=== PATIENT | female | born 1995 | race Caucasian/White ===

== ENCOUNTER → 2022-07-04 | Outpatient (CLI) | payer BC ==
--- NOTE | 2022-07-04 17:32 | Diagnostic Imaging Report ---
INDICATION: Supervision of normal . Anatomy scan. TECHNIQUE: Multiple real-time grayscale images were obtained over the gravid uterus. COMPARISON: None FINDINGS: A single live intrauterine gestation is visualized in cephalic presentation. heart tones measure 142 bpm. The placenta is posterior and not low-lying. The BRIGIDA measures 10 cm. The cervix is closed and measures 4.8 cm in length. The kidneys, bladder, stomach, ventricles and brain, four-chamber heart, three-vessel cord, spine, and cord insertion are visualized and have a normal appearance. Views of the adnexa are unremarkable without evidence of mass or free fluid. Biometrical measurements are as follows: Biparietal 4.77 cm, age 20 weeks 3 days. Head circumference 17.43 cm, age 20 weeks 0 days. Abdominal circumference 13.93 cm, age 19 weeks 3 days. Femur length 3.18 cm, age 20 weeks 0 days. Sonographic estimate age: 20 weeks 0 days. Sonographic estimated date of delivery: 11/21/2022. Estimated Weight: 305 gm (+/- 45 gm). LMP percentile: 34%. heart rate: 142 beats per minute. number: 1 of 1. IMPRESSION: 1. Single live intrauterine gestation measuring 20 weeks 0 days with an estimated due date of 11/21/2022. These are within range of the clinical dates. 2. Unremarkable anatomy survey. No abnormalities are seen. Dictated by: Dictated on workstation # [id number]
== END ==
LOC: RAD 10:00
PROVIDERS: ATTEND Obstetrics & Gynecology
DX: Z13.6 Encounter for screening for cardiovascular disorders (principal); Z3A.20 20 weeks gestation of pregnancy
CPT/HCPCS: 76805

== ENCOUNTER 2022-11-18 19:06 | Inpatient (IN) | payer BC ==
[~2022-11-18] VITALS: Ht 173.5 cm; Wt 79.2 kg
[2022-11-18 19:48] VITALS: BP 131/88
[2022-11-18] MEDS ORDERED: TERBUTALINE INJ 1 MG/ML (BRETHINE) AMP SC PRN (20:00)
[2022-11-18] MEDS ORDERED: NS IV 500 ML 500 ML IV ONE (20:00)
[2022-11-18] MEDS ORDERED: NS IV 500 ML 500 ML ONE (20:07)
[2022-11-18 20:10] VITALS: BP 137/97
[2022-11-18 20:12] LABS: BASOPHILS % (AUTO) 0 % (0-10); EOSINOPHILS % (AUTO) 0 % (0-10); HEMATOCRIT 36 % (35-52); HEMOGLOBIN 12.7 g/dL (11.5-16.0); LYMPHOCYTES # (AUTO) 1.8 10^3/uL (1.0-4.0); LYMPHOCYTES % (AUTO) 17 % (12-44); MEAN CORPUSCULAR HEMOGLOBIN 32 pg (25-34); MEAN CORPUSCULAR HGB CONC 36 g/dL (32-36); MEAN CORPUSCULAR VOLUME 90 fL (80-99); MEAN PLATELET VOLUME 10.6 fL (9.0-12.2); MONOCYTES # (AUTO) 0.5 10^3/uL (0.0-1.0); MONOCYTES % (AUTO) 4 % (0-12); NEUTROPHILS # (AUTO) 8.7 10^3/uL (1.8-7.8); NEUTROPHILS % (AUTO) 78 % (42-75); PLATELET COUNT 254 10^3/uL (130-400); WHITE BLOOD COUNT 11.2 10^3/uL (4.3-11.0)
[2022-11-18 20:25] VITALS: BP 136/91
[2022-11-18] MEDS ORDERED: D5 LR IV SOLUTION 1,000 ML IV ONE (20:26)
[2022-11-18] MEDS: D5 LR IV SOLUTION 1,000 ML IV SCH (20:28)
[2022-11-18] MEDS: CATHETER FLUSH 10 ML SYR IV SCH (21:20)
[2022-11-18 21:52] LABS: BILIRUBIN,URINE NEGATIVE (NEGATIVE); CLARITY,URINE CLEAR; COLOR,URINE YELLOW; GLUCOSE, URINE (UA) NEGATIVE (NEGATIVE); KETONES,URINE NEGATIVE (NEGATIVE); LEUKOCYTE ESTERASE ,URINE NEGATIVE (NEGATIVE); NITRITE,URINE NEGATIVE (NEGATIVE); PROTEIN,URINE TRACE (NEGATIVE)
[2022-11-18 22:02] LABS: BACTERIA,URINE TRACE /HPF; SQUAMOUS EPITHELIAL CELL,UR RARE /HPF
[2022-11-19] VITALS (63 sets, daily range): BP systolic 111–186; BP diastolic 60–102
[2022-11-19] MEDS: D5 LR IV SOLUTION 1,000 ML IV SCH ×2 (04:21→12:17)
[2022-11-19] MEDS: CATHETER FLUSH 10 ML SYR IV SCH (05:42)
[2022-11-19] MEDS ORDERED: HYDROmorphone 2 MG/ML VIAL (DILAUDID) ONE (05:44)
[2022-11-19] MEDS ORDERED: HYDROmorphone 2 MG/ML VIAL (DILAUDID) IV ONE (05:45)
[2022-11-19] MEDS ORDERED: LACTATED RINGERS 1,000 ML IV ONE ×2 (06:15→07:15)
[2022-11-19] MEDS ORDERED: fentaNYL 2 mcg/ml BUPIVA 0.125 100 ML ONE (06:37)
[2022-11-19] MEDS ORDERED: fentaNYL INJ 100 MCG/2 ML AMP ONE (07:03)
[2022-11-19] MEDS ORDERED: BUPIVACAINE 0.25% 10 ML (SENSORCAINE) VIAL ONE (07:03)
[2022-11-19] MEDS ORDERED: CATHETER FLUSH 10 ML SYR IV PRN (07:15)
[2022-11-19] MEDS ORDERED: diphenhydrAMINE 50 MG/ML INJ (BENADRYL) IV PRN (07:15)
[2022-11-19] MEDS ORDERED: NALOXONE 0.4 MG/ML 1 ML (NARCAN) VIAL IV PRN ×2 (07:15→17:00)
[2022-11-19] MEDS ORDERED: ONDANSETRON 4 MG/2 ML (SDV) Z0FRAN IV PRN (07:15)
[2022-11-19] MEDS: fentaNYL 2 mcg/ml BUPIVA 0.125 100 ML IV SCH ×2 (07:27→14:35)
--- NOTE | 2022-11-19 08:37 | History & Physical-OB/GYN ---
History of Present Illness History of Present Illness Reason for visit/HPI Patient is a 27 y/o F at 39 weeks here today with her for induction of labor due to gestational hypertension. She reports some contractions over night. She has received her epidural now and contractions have subsided. She states she does not feel any pressure yet. Denies any other complaints at this time. Blood Type: O- Rubella immune RPR NR HBSag - HIV - GBS - Date of Admission Nov 18, 2022 at 19:06 Date Seen by a Provider: Nov 19, 2022 Time Seen by a Provider: 08:11 I consulted on this patient on 11/19/22 08:33 Attending Physician [place],Local Physician Admitting Physician Admitting Physician: Merritt Marcial DO Attending Physician: Merritt Marcial DO Consult Allergies and Home Medications Allergies Coded Allergies: No Known Drug Allergies (Unverified , 11/18/22) Patient Home Medication List Home Medication List Reviewed: Yes Benzocaine/Menthol (Dermoplast Pain Relieving [place]) 20 %-0.5 % Aerosol, 56 EA TP UD PRN for PAIN- SEE INSTRUCTIONS Prescribed by: MERRITT MARCIAL on 11/19/221703 Dibucaine (Dibucaine) 1 % Oint, 1 GM TOP UD PRN for PAIN- SEE INSTRUCTIONS Prescribed by: MERRITT MARCIAL on 11/19/221703 Docusate Sodium (Docusate Sodium) 100 Mg Capsule, 100 MG PO BID PRN for CONS TIPATION-1ST LINE Prescribed by: MERRITT MARCIAL on 11/19/221703 Hydrocodone/Acetaminophen (Hydrocodone-Acetamin 5-325 mg) 5 Mg-325 Mg Tablet, 1 EA PO Q4H PRN for PAIN-MODERATE (5-7) Prescribed by: MERRITT MARCIAL on 11/19/221703 Ibuprofen (Ibu) 600 Mg Tablet, 600 MG PO Q6H Prescribed by: MERRITT MARCIAL on 11/19/221703 Past Sfkfpbe-Wfgnyy-Janefd Hx Patient Social History Smoking Status: Never a Smoker Have you traveled recently?: No Alcohol Use?: No Pt feels they are or have been: No Reproductive System Expected Date of Delivery: Nov 22, 2022 Review of Systems Gastrointestinal: No abdominal pain, No nausea, No vomiting Physical Exam Physical Exam Vital Signs Vital Signs Date Time Temp Pulse Resp B/P (MAP) Pulse Ox O2 Delivery O2 Flow Rate FiO2 11/20/22 04:30 36.4 83 20 138/89 (105) 98 Room Air 11/20/22 00:30 36.4 82 16 129/77 (94) 97 Room Air 11/19/22 20:12 36.7 73 18 111/79 (90) 97 Room Air 11/19/22 18:37 75 128/77 (94) Room Air 11/19/22 18:22 127/85 (99) Room Air 11/19/22 18:07 70 125/76 (92) Room Air 11/19/22 17:52 36.9 57 136/82 (100) Room Air 11/19/22 17:37 55 149/88 (108) Room Air 11/19/22 17:22 58 133/82 (99) Room Air 11/19/22 16:52 79 137/82 (100) Room Air 11/19/22 16:37 76 151/77 (101) Room Air 11/19/22 16:22 104 150/91 (110) Room Air 11/19/22 16:07 88 149/97 (114) Room Air 11/19/22 15:52 107 146/85 (105) Room Air 11/19/22 15:40 72 186/97 (126) Room Air 11/19/22 15:24 78 142/85 (104) Room Air 11/19/22 15:09 115/66 (82) 11/19/22 14:52 119/60 (79) 11/19/22 14:37 122/84 (97) Room Air 11/19/22 14:23 53 141/91 (108) Room Air 11/19/22 14:08 131/67 (88) Room Air 11/19/22 14:02 36.6 11/19/22 13:53 73 133/86 (102) Room Air 11/19/22 13:37 56 151/92 (111) Room Air 11/19/22 13:22 67 123/67 (85) Room Air 11/19/22 13:07 49 140/90 (107) Room Air 11/19/22 12:54 70 133/85 (101) Room Air 11/19/22 12:38 74 150/102 (118) Room Air 11/19/22 12:20 95 137/84 (101) Room Air 11/19/22 12:08 36.3 145/75 (98) Room Air 11/19/22 11:53 130/72 (91) Room Air 11/19/22 11:38 119/80 (93) Room Air 11/19/22 11:24 140/99 (113) Room Air 11/19/22 11:07 144/89 (107) Room Air 11/19/22 10:54 55 152/99 (116) Room Air 11/19/22 10:38 72 160/96 (117) Room Air 11/19/22 10:25 147/88 (107) Room Air 11/19/22 10:09 158/89 (112) Room Air 11/19/22 09:55 75 18 135/76 (95) Room Air 11/19/22 09:41 61 18 152/87 (108) Room Air 11/19/22 09:38 36.3 11/19/22 09:22 88 118/82 (94) Room Air 11/19/22 09:07 58 120/80 (93) Room Air 11/19/22 08:52 61 126/77 (93) Room Air 11/19/22 08:37 52 118/76 (90) Room Air 11/19/22 08:20 137/75 (95) 95 Room Air 11/19/22 08:16 64 135/86 (102) 96 Room Air 11/19/22 08:08 56 145/83 (103) 97 Room Air 11/19/22 08:01 81 136/82 (100) 94 Room Air 11/19/22 07:58 51 147/90 (109) 96 Room Air 11/19/22 07:55 51 150/86 (107) 96 Room Air 11/19/22 07:52 61 134/74 (94) 96 Room Air 11/19/22 07:50 61 134/70 (91) Room Air 11/19/22 07:41 65 147/68 (94) 96 Room Air 11/19/22 07:38 54 135/86 (102) 96 Room Air 11/19/22 07:35 54 131/88 (102) 96 Room Air I & O 11/20/22 07:00 Intake Total 500 ml Balance 500 ml Capillary Refill : Less Than 3 Seconds Labs Laboratory Tests 11/20/22 05:38: White Blood Count 13.9H, Red Blood Count 3.05L, Hemoglobin 9.6#L, Hematocrit 28L , Mean Corpuscular Volume 92, Mean Corpuscular Hemoglobin 31, Mean Corpuscular Hemoglobin Concent 34, Red Cell Distribution Width 12.3, Platelet Count 181, Mean Platelet Volume 10.5, Immature Granulocyte % (Auto) 1, Neutrophils (%) (Auto) 82H, Lymphocytes (%) (Auto) 12, Monocytes (%) (Auto) 5, Eosinophils (%) (Auto) 0, Basophils (%) (Auto) 0, Neutrophils # (Auto) 11.4H, Lymphocytes # (Auto) 1.7, Monocytes # (Auto) 0.7, Eosinophils # (Auto) 0.1, Basophils # (Auto) 0.0, Immature Granulocyte # (Auto) 0.1 ANDRES HOLLINGSWORTH Nov 19, 2022 08:37
[2022-11-19] MEDS ORDERED: OXYTOCIN PRE-MIX DRIP 500 ML IV SCH ×2 (10:15→17:00)
[2022-11-19] MEDS ORDERED: LIDOCAINE 1% INJ 20 ML VIAL IJ PRN (12:00)
[2022-11-19] MEDS ORDERED: PROMETHAZINE INJ 25 MG/ML (PHENERGAN) AMP IVP NR (14:30)
[2022-11-19] MEDS ORDERED: LIDOCAINE 1% INJ 10 ML VIAL ONE (15:33)
--- NOTE | 2022-11-19 16:57 | OB Labor & Delivery Record ---
L&D History Date of Service Date of Service: Nov 19, 2022 History Expected Date of Delivery: Nov 22, 2022 Gestational Age in Weeks: 39 Hx : 1 Hx Para: 0 Complications Events: Pre-Eclampsia, Routine care Operative Indications (Cesarea: N/A-Vaginal Delivery Intrapartal Events: None L&D Stage1 Stage One Onset of Labor - Date: Nov 19, 2022 Monitors and Tracing Monitor Mode: External Heart Rate: 125 Monitor Decelerations: None Station: 0 [employer] Cle[employer] Supervisor Variability: Average (6-10) Short Term Variability: Present Presentation: Vertex Vital Signs VS - Last 72 Hours, by Label 11/18/22 11/18/22 11/18/22 11/19/22 19:48 20:10 20:25 00:31 Temp 36.7 37.0 Pulse 99 66 63 Resp 20 20 18 B/P (MAP) 137/97 (110) 136/91 (106) 133/86 (102) Pulse Ox 95 96 97 O2 Delivery Room Air Room Air Room Air 11/19/22 11/19/22 11/19/22 11/19/22 05:20 05:40 05:52 06:09 Temp 37.0 Pulse 58 51 49 47 Resp 20 20 B/P (MAP) 173/90 (117) 176/102 (126) 160/87 (111) 170/90 (116) Pulse Ox 98 99 O2 Delivery Room Air Room Air 11/19/22 11/19/22 11/19/22 11/19/22 07:13 07:15 07:18 07:22 Pulse 70 61 69 Resp 18 18 18 B/P (MAP) 155/84 (107) 142/95 (111) 176/100 (125) 159/100 (119) Pulse Ox 99 98 98 O2 Delivery Room Air Room Air Room Air 11/19/22 11/19/22 11/19/22 11/19/22 07:27 07:30 07:35 07:38 Pulse 62 75 54 54 Resp 18 B/P (MAP) 154/84 (107) 133/80 (97) 131/88 (102) 135/86 (102) Pulse Ox 97 96 96 96 O2 Delivery Room Air Room Air Room Air Room Air 11/19/22 11/19/22 11/19/22 11/19/22 07:41 07:50 07:52 07:55 Pulse 65 61 61 51 B/P (MAP) 147/68 (94) 134/70 (91) 134/74 (94) 150/86 (107) Pulse Ox 96 96 96 O2 Delivery Room Air Room Air Room Air Room Air 11/19/22 11/19/22 11/19/22 11/19/22 07:58 08:01 08:08 08:16 Pulse 51 81 56 64 B/P (MAP) 147/90 (109) 136/82 (100) 145/83 (103) 135/86 (102) Pulse Ox 96 94 97 96 O2 Delivery Room Air Room Air Room Air Room Air 11/19/22 11/19/22 11/19/22 11/19/22 08:20 08:37 08:52 09:07 Pulse 52 61 58 B/P (MAP) 137/75 (95) 118/76 (90) 126/77 (93) 120/80 (93) Pulse Ox 95 O2 Delivery Room Air Room Air Room Air Room Air 11/19/22 11/19/22 11/19/22 11/19/22 09:22 09:38 09:41 09:55 Temp 36.3 Pulse 88 61 75 Resp 18 18 B/P (MAP) 118/82 (94) 152/87 (108) 135/76 (95) O2 Delivery Room Air Room Air Room Air 11/19/22 11/19/22 11/19/22 11/19/22 10:09 10:25 10:38 10:54 Pulse 72 55 B/P (MAP) 158/89 (112) 147/88 (107) 160/96 (117) 152/99 (116) O2 Delivery Room Air Room Air Room Air Room Air 11/19/22 11/19/22 11/19/22 11/19/22 11:07 11:24 11:38 11:53 B/P (MAP) 144/89 (107) 140/99 (113) 119/80 (93) 130/72 (91) O2 Delivery Room Air Room Air Room Air Room Air 11/19/22 11/19/22 11/19/22 11/19/22 12:08 12:20 12:38 12:54 Temp 36.3 Pulse 95 74 70 B/P (MAP) 145/75 (98) 137/84 (101) 150/102 (118) 133/85 (101) O2 Delivery Room Air Room Air Room Air Room Air 11/19/22 11/19/22 11/19/22 11/19/22 13:07 13:22 13:37 13:53 Pulse 49 67 56 73 B/P (MAP) 140/90 (107) 123/67 (85) 151/92 (111) 133/86 (102) O2 Delivery Room Air Room Air Room Air Room Air 11/19/22 11/19/22 11/19/22 14:08 14:23 14:37 Pulse 53 B/P (MAP) 131/67 (88) 141/91 (108) 122/84 (97) O2 Delivery Room Air Room Air Room Air Rupture of Membranes Spontaneous Ruture of Membrane: No Amniotic Membrane Rupture Time: 512 Amniotic Membrane Fluid Desc.: Clear Vaginal Bleeding Description: Normal Show Induction/Anesthesia Epidural Cath Placement - Time: 718 Progress/Notes Patient admitted for IOL due to PreE. Misoprostol PO given overnight for cervical ripening. AROM performed this AM, and epidural placed after. Pitocin augmentation used to max dose of 4 mu, she progressed to complete and + 2 station. L&D Stage2 Stage Two Stage II Date: Nov 19, 2022 Monitors and Tracing Monitor Mode: External Heart Rate: 125 Monitor Accelerations: Uniform Monitor Decelerations: Variable Nursing Home Variability: Average (6-10) Short Term Variability: Present Position: Right Occiput Anterior Presentation: Vertex Cord Descript/Complications Cord Vessel Description: 3 Vessels Delivery Type Delivery Method: Spontaneous Vaginal Anterior Shoulder: Left Episiotomy/Perineal Laceration Laceraction(s)/Extensions: Yes Episiotomy Description: Right Mediolateral Location Modifier: Right Degree (describe repair) 3-0, 2-0 vicryl suture used to repair RML in usual fashion. Condition of Infant Delivery 1 minute Comment: 8 5 minute Comment: 9 Notes Live male weight 7lbs 1 oz. Condition of Infant Condition of : Living Exam: No Observed Abnormalities Resuscitation Resuscitation: N/A - Spontaneous Resp L&D Stage3 Stage Three Stage III Date: Nov 19, 2022 Pictocin Pitocin Administration mu/min: 4 Pitocin ml/hr: 4 Pitocin Administration Comment: 1321- PITOCIN INCREASED TO 4ML/HR PER PITOCIN PROTOCOL Placenta Delivery Placenta Delivery: Spontaneous Delivery Summary Summary Estimated blood loss (mL): 400 Attending at delivery: Desire Marcial DO Condition of Delivery Examined: Cervix Examined, Uterus Explored Post Hemorrhage: No Condition of Mother stable Condition of (s) stable DESIRE MARCIAL DO Nov 19, 2022 16:57
[2022-11-19] MEDS ORDERED: TETANUS,DIPTH,PERTUSS P/F (BOOSTRIX) 0.5 ML VIAL IM ONE (17:00)
[2022-11-19] MEDS ORDERED: HYDROcodone/APAP 5 MG/325 MG (LORTAB) TAB PO PRN (17:00)
[2022-11-19] MEDS ORDERED: BENZOCAINE/MENTHOL (DERMOPLAST) 56 ML CAN TP PRN (17:00)
[2022-11-19] MEDS ORDERED: MEASLES,MUMPS,RUBELLA 1 EA INJ SQ ONE (17:00)
[2022-11-19] MEDS ORDERED: DIBUCAINE 1% OINTMENT 28 GM TUBE TOP PRN (17:00)
--- NOTE | 2022-11-19 17:00 | Discharge Inst-Women's Service ---
Discharge Inst-Women's Serv Depart Medication/Instructions New, Converted or Re-Newed RX: Transmitted to Pharmacy Final Diagnosis PPD 1 NVD Problems Reviewed?: Yes Consults/Follow Up Additional Follow Up: Yes Orders/Referrals Dr. Marcial in 6 weeks Activity Activity: Activity as Tolerated Driving Instructions: No Driving for 1 Week NO SMOKING: NO SMOKING Nothing Inside Vagina: No Douching, No Bug Tussle, No Tampons Diet Discharge Diet: No Restrictions Symptoms to Report to : Bleeding Excessive, Pain Increased, Fever Over 101 Degrees F, Vaginal Bleeding Increase, Questions/Concerns For Any Problems or Questions: Contact Your Physician DESIRE MARCIAL DO Nov 19, 2022 17:00
[2022-11-19] MEDS ORDERED: ACHD5005 PO (17:04)
[2022-11-19] MEDS ORDERED: BENZ78AE5 TP (17:04)
[2022-11-19] MEDS ORDERED: DOCU100C37 PO (17:04)
[2022-11-19] MEDS ORDERED: IBUP-844 PO (17:04)
[2022-11-19] MEDS ORDERED: DIBU30OI TOP (17:04)
--- NOTE | 2022-11-19 17:09 | History & Physical-OB ---
OB - Chief Complaint & HPI Date/Time Date of Admission: Date of Admission: Nov 18, 2022 at 19:06 Date seen by a Provider: Nov 19, 2022 Time Seen by a Provider: 04:00 Chief Complaint/History OB-Reason for Admission/Chief: Induction of Labor Hx : 1 Hx Para: 0 Expected Date of Delivery: Nov 22, 2022 Gestational Age in Weeks: 39 Gestational Age in Days: 3 Indication for induction: medical complication Admission Nurse Assessment Rev: Yes Allergies and Home Medications Allergies Coded Allergies: No Known Drug Allergies (Unverified , 11/18/22) Patient Home Medication List Home Medication List Reviewed: Yes Benzocaine/Menthol (Dermoplast Pain Relieving [place]) 20 %-0.5 % Aerosol, 56 EA TP UD PRN for PAIN- SEE INSTRUCTIONS Prescribed by: DESIRE MARCIAL on 11/19/22 170 Dibucaine (Dibucaine) 1 % Oint, 1 GM TOP UD PRN for PAIN- SEE INSTRUCTIONS Prescribed by: DESIRE MARCIAL on 11/19/22 1704 Docusate Sodium (Docusate Sodium) 100 Mg Capsule, 100 MG PO BID PRN for CONSTIPATION-1ST LINE Prescribed by: DESIRE MARCIAL on 11/19/22 1704 Hydrocodone/Acetaminophen (Hydrocodone-Acetamin 5-325 mg) 5 Mg-325 Mg Tablet, 1 EA PO Q4H PRN for PAIN-MODERATE (5-7) Prescribed by: DESIRE MARCIAL on 11/19/22 170 Ibuprofen (Ibu) 600 Mg Tablet, 600 MG PO Q6H Prescribed by: DESIRE MARCIAL on 11/19/22 1704 OB - History Hx of Present Care: Yes Ultrasounds: Normal mid trimester US Obstetrical Complications: None Medical Complications: None Obstetrical History Hx : 1 Hx Para: 0 Patient Past Medical History nc Immunizations Influenza Vaccine Up-to-Date: No; Not Current Hepatitis A: Yes Hepatitis B: Yes OB - Admission Exam Physical Exam Vitals: Vital Signs 11/19/22 11/19/22 11/19/22 11/19/22 11/19/22 08:20 09:55 12:08 14:23 14:37 Temp 36.3 Pulse 53 Resp 18 B/P (MAP) 122/84 (97) Pulse Ox 95 O2 Delivery Room Air HEENT: NCAT Heart: Rhythm Normal Lungs: Clear Abdomen: Gravid Extremities: Normal Reflexes: Normal Cervical Dilatation: 1cm Effacement: 100% Station: -1 Membranes: Intact Heart Rate: 130's Accelerations: Accelerations Present Decelerations: No Decelerations Short Term Variability: Present Intermediate Variability: Average (6-25) Contractions on Admission: 6-10 Minutes Apart Intensity: Mild Labs Laboratory Tests Test 11/18/22 19:10 11/18/22 19:30 Range/Units Urine Color YELLOW Urine Clarity CLEAR Urine pH 6.0 5-9 Urine Specific [place] 1.015 L 1.016-1.022 Urine Protein TRACE H NEGATIVE Urine Glucose (UA) NEGATIVE NEGATIVE Urine Ketones NEGATIVE NEGATIVE Urine Nitrite NEGATIVE NEGATIVE Urine Bilirubin NEGATIVE NEGATIVE Urine Urobilinogen 0.2 < = 1.0 MG/DL Urine Leukocyte Esterase NEGATIVE NEGATIVE Urine RBC (Auto) NEGATIVE NEGATIVE Urine RBC NONE /HPF Urine WBC NONE /HPF Urine Squamous Epithelial Cells RARE /HPF Urine Crystals NONE /LPF Urine Bacteria TRACE /HPF Urine Casts NONE /LPF Urine Mucus NEGATIVE /LPF Urine Culture Indicated NO White Blood Count 11.2 H 4.3-11.0 10^3/uL Red Blood Count 3.99 3.80-5.11 10^6/uL Hemoglobin 12.7 11.5-16.0 g/dL Hematocrit 36 35-52 % Mean Corpuscular Volume 90 80-99 fL Mean Corpuscular Hemoglobin 32 25-34 pg Mean Corpuscular Hemoglobin Concent 36 32-36 g/dL Red Cell Distribution Width 12.0 10.0-14.5 % Platelet Count 254 130-400 10^3/uL Mean Platelet Volume 10.6 9.0-12.2 fL Immature Granulocyte % (Auto) 1 % Neutrophils (%) (Auto) 78 H 42-75 % Lymphocytes (%) (Auto) 17 12-44 % Monocytes (%) (Auto) 4 0-12 % Eosinophils (%) (Auto) 0 0-10 % Basophils (%) (Auto) 0 0-10 % Neutrophils # (Auto) 8.7 H 1.8-7.8 10^3/uL Lymphocytes # (Auto) 1.8 1.0-4.0 10^3/uL Monocytes # (Auto) 0.5 0.0-1.0 10^3/uL Eosinophils # (Auto) 0.0 0.0-0.3 10^3/uL Basophils # (Auto) 0.0 0.0-0.1 10^3/uL Immature Granulocyte # (Auto) 0.1 0.0-0.1 10^3/uL Syphilis Serology Non-Reactive Non-Reactive OB - Assessment/Plan/Diagnosis Assessment Assessment: induction of labor Admission Dx 27 yo @ 39 weeks GBS neg Mild PreE Admission Status: Inpatient Order (span 2 midnights) Reason for Inpatient Admission: IOL at 39 weeks Plan Plan: Induction DESIRE MARCIAL DO Nov 19, 2022 17:09
[2022-11-19] MEDS: IBUPROFEN 600 MG (MOTRIN) TAB PO SCH (18:58)
[2022-11-19] MEDS: WITCH HAZEL(TUCKS) 40 EA JAR TOP PRN (20:15)
[2022-11-19] MEDS: DOCUSATE SODIUM 100 MG (COLACE) CAP PO SCH (20:45)
[2022-11-19] MEDS ORDERED: CATHETER FLUSH 10 ML SYR IV SCH (22:00)
[2022-11-20 00:30] VITALS: BP 129/77
[2022-11-20] MEDS: IBUPROFEN 600 MG (MOTRIN) TAB PO SCH ×4 (00:31→16:48)
[2022-11-20 04:30] VITALS: BP 138/89
[2022-11-20 06:03] LABS: BASOPHILS % (AUTO) 0 % (0-10); EOSINOPHILS # (AUTO) 0.1 10^3/uL (0.0-0.3); EOSINOPHILS % (AUTO) 0 % (0-10); HEMATOCRIT 28 % (35-52); HEMOGLOBIN 9.6 g/dL (11.5-16.0); LYMPHOCYTES # (AUTO) 1.7 10^3/uL (1.0-4.0); LYMPHOCYTES % (AUTO) 12 % (12-44); MEAN CORPUSCULAR HGB CONC 34 g/dL (32-36); MEAN CORPUSCULAR VOLUME 92 fL (80-99); MEAN PLATELET VOLUME 10.5 fL (9.0-12.2); MONOCYTES # (AUTO) 0.7 10^3/uL (0.0-1.0); MONOCYTES % (AUTO) 5 % (0-12); NEUTROPHILS # (AUTO) 11.4 10^3/uL (1.8-7.8); NEUTROPHILS % (AUTO) 82 % (42-75); PLATELET COUNT 181 10^3/uL (130-400); WHITE BLOOD COUNT 13.9 10^3/uL (4.3-11.0)
[2022-11-20 06:15] LABS: MEAN CORPUSCULAR HEMOGLOBIN 31 pg (25-34)
[2022-11-20] MEDS ORDERED: PRENATAL VITAMIN 1 EA TAB PO SCH (07:00)
--- NOTE | 2022-11-20 08:11 | Postpartum Progress Note ---
Note Note Day # 1 Subjective: Patient is without complaints. Ambulating, voiding. Tolerating a regular diet without nausea or vomiting. Normal lochia. Pain is well controlled with oral pain medications. Objective: Physical Exam: General - Alert and oriented, no apparent distress Abdomen - Soft, appropriately tender to palpation, non-distended, fundus firm at umbilicus Extremities - no edema, negative Penny's bilaterally Assessment: PPD 1 NVD Acute blood loss anemia Plan: Routine care. Encourage breast feeding. Encourage ambulation. Ferrous sulfate supplementation. Plan for discharge today Vitals - Labs Vital Signs - I&O Vital Signs Date Time Temp Pulse Resp B/P (MAP) Pulse Ox O2 Delivery O2 Flow Rate FiO2 11/20/22 04:30 36.4 83 20 138/89 (105) 98 Room Air 11/20/22 00:30 36.4 82 16 129/77 (94) 97 Room Air 11/19/22 20:12 36.7 73 18 111/79 (90) 97 Room Air 11/19/22 18:37 75 128/77 (94) Room Air 11/19/22 18:22 127/85 (99) Room Air 11/19/22 18:07 70 125/76 (92) Room Air 11/19/22 17:52 36.9 57 136/82 (100) Room Air 11/19/22 17:37 55 149/88 (108) Room Air 11/19/22 17:22 58 133/82 (99) Room Air 11/19/22 16:52 79 137/82 (100) Room Air 11/19/22 16:37 76 151/77 (101) Room Air 11/19/22 16:22 104 150/91 (110) Room Air 11/19/22 16:07 88 149/97 (114) Room Air 11/19/22 15:52 107 146/85 (105) Room Air 11/19/22 15:40 72 186/97 (126) Room Air 11/19/22 15:24 78 142/85 (104) Room Air 11/19/22 15:09 115/66 (82) 11/19/22 14:52 119/60 (79) 11/19/22 14:37 122/84 (97) Room Air 11/19/22 14:23 53 141/91 (108) Room Air 11/19/22 14:08 131/67 (88) Room Air 11/19/22 14:02 36.6 11/19/22 13:53 73 133/86 (102) Room Air 11/19/22 13:37 56 151/92 (111) Room Air 11/19/22 13:22 67 123/67 (85) Room Air 11/19/22 13:07 49 140/90 (107) Room Air 11/19/22 12:54 70 133/85 (101) Room Air 11/19/22 12:38 74 150/102 (118) Room Air 11/19/22 12:20 95 137/84 (101) Room Air 11/19/22 12:08 36.3 145/75 (98) Room Air 11/19/22 11:53 130/72 (91) Room Air 11/19/22 11:38 119/80 (93) Room Air 11/19/22 11:24 140/99 (113) Room Air 11/19/22 11:07 144/89 (107) Room Air 11/19/22 10:54 55 152/99 (116) Room Air 11/19/22 10:38 72 160/96 (117) Room Air 11/19/22 10:25 147/88 (107) Room Air 11/19/22 10:09 158/89 (112) Room Air 11/19/22 09:55 75 18 135/76 (95) Room Air 11/19/22 09:41 61 18 152/87 (108) Room Air 11/19/22 09:38 36.3 11/19/22 09:22 88 118/82 (94) Room Air 11/19/22 09:07 58 120/80 (93) Room Air 11/19/22 08:52 61 126/77 (93) Room Air 11/19/22 08:37 52 118/76 (90) Room Air 11/19/22 08:20 137/75 (95) 95 Room Air 11/19/22 08:16 64 135/86 (102) 96 Room Air I & O 11/20/22 07:00 Intake Total 500 ml Balance 500 ml Labs Laboratory Tests 11/20/22 05:38: White Blood Count 13.9H, Red Blood Count 3.05L, Hemoglobin 9.6#L, Hematocrit 28L , Mean Corpuscular Volume 92, Mean Corpuscular Hemoglobin 31, Mean Corpuscular Hemoglobin Concent 34, Red Cell Distribution Width 12.3, Platelet Count 181, Mean Platelet Volume 10.5, Immature Granulocyte % (Auto) 1, Neutrophils (%) (Aut o) 82H, Lymphocytes (%) (Auto) 12, Monocytes (%) (Auto) 5, Eosinophils (%) (Auto) 0, Basophils (%) (Auto) 0, Neutrophils # (Auto) 11.4H, Lymphocytes # (Auto) 1.7, Monocytes # (Auto) 0.7, Eosinophils # (Auto) 0.1, Basophils # (Auto) 0.0, Immature Granulocyte # (Auto) 0.1 DESIRE MARCIAL DO Nov 20, 2022 08:11
[2022-11-20] MEDS ORDERED: FERROUS SULF 325 MG (IRON) TAB PO SCH (09:00)
--- NOTE | 2022-11-20 10:14 | Anesthesia-Regional Post-Op ---
Regional Patient Condition Mental Status: Alert, Oriented x3 Circulation: Same as Pre-Op Headache: Absent Sensation: Full Recovery Motor Block: Absent Post Op Complications Complications None Follow Up Care/Instructions Patient Instructions None needed. Anesthesia/Patient Condition Patient is doing well, no complaints, stable vital signs, no apparent adverse anesthesia problems. No complications reported per nursing. KELLY DUARTE CRNA Nov 20, 2022 10:14
[2022-11-20] MEDS: DOCUSATE SODIUM 100 MG (COLACE) CAP PO SCH (10:31)
[2022-11-20 10:40] VITALS: BP 138/89
[2022-11-20 16:51] VITALS: BP 133/80
[2022-11-20] MEDS: WITCH HAZEL(TUCKS) 40 EA JAR TOP PRN (17:01)
--- NOTE | 2022-11-21 05:21 | Postpartum Progress Note ---
Note Note Day # 2 Subjective: Patient is without complaints. Ambulating, voiding. Tolerating a regular diet without nausea or vomiting. Normal lochia. Pain is well controlled with oral pain medications. Objective: Physical Exam: General - Alert and oriented, no apparent distress Abdomen - Soft, appropriately tender to palpation, non-distended, fundus firm at umbilicus Extremities - no edema, negative Penny's bilaterally Assessment: PPD 2 NVD Acute blood loss anemia Plan: Routine care. Encourage breast feeding. Encourage ambulation. Ferrous sulfate supplementation. Plan for discharge today Vitals - Labs Vital Signs - I&O Vital Signs Date Time Temp Pulse Resp B/P (MAP) Pulse Ox O2 Delivery O2 Flow Rate FiO2 11/20/22 16:51 36.4 79 18 133/80 (97) 98 Room Air 11/20/22 10:40 36.4 83 20 138/89 (105) 98 Room Air Labs Laboratory Tests 11/20/22 05:38: White Blood Count 13.9H, Red Blood Count 3.05L, Hemoglobin 9.6#L, Hematocrit 28L , Mean Corpuscular Volume 92, Mean Corpuscular Hemoglobin 31, Mean Corpuscular Hemoglobin Concent 34, Red Cell Distribution Width 12.3, Platelet Count 181, Mean Platelet Volume 10.5, Immature Granulocyte % (Auto) 1, Neutrophils (%) (Au to) 82H, Lymphocytes (%) (Auto) 12, Monocytes (%) (Auto) 5, Eosinophils (%) (Auto) 0, Basophils (%) (Auto) 0, Neutrophils # (Auto) 11.4H, Lymphocytes # (Auto) 1.7, Monocytes # (Auto) 0.7, Eosinophils # (Auto) 0.1, Basophils # (Auto) 0.0, Immature Granulocyte # (Auto) 0.1 DESIRE MARCIAL DO Nov 21, 2022 05:21
== END 2022-11-20 20:25 | disposition home or self-care (01) | DRG 806 ==
LOC: LDRP 19:06
PROVIDERS: ADMIT Obstetrics & Gynecology; ATTEND Obstetrics & Gynecology
PROC: 3E0DXGC Introduction of Other Therapeutic Substance into Mouth and Pharynx, External Approach (ICD-10-PCS; 2022-11-18)
PROC: 10E0XZZ Delivery of Products of Conception, External Approach (ICD-10-PCS; principal; 2022-11-19)
PROC: 0W8NXZZ Division of Female Perineum, External Approach (ICD-10-PCS; 2022-11-19)
DX: O14.04 Mild to moderate pre-eclampsia, complicating childbirth (principal); Z37.0 Single live birth; D62 Acute posthemorrhagic anemia; O90.81 Anemia of the puerperium; Z3A.39 39 weeks gestation of pregnancy
CPT/HCPCS: 36415; 81000; 83033; 85025; 86780; 86850; 86900; 86901

== ENCOUNTER → 2022-11-18 | Outpatient (CLI) | payer BC ==
[~2022-11-18] MED LIST: ACHD5005 PO; BENZ78AE5 TP; DIBU30OI TOP; DOCU100C37 PO; IBUP-844 PO
== END ==
LOC: LABNPT 11:35
PROVIDERS: ATTEND Obstetrics & Gynecology
DX: O13.9 Gestational [pregnancy-induced] hypertension without significant proteinuria, unspecified trimester (principal); Z3A.00 Weeks of gestation of pregnancy not specified
CPT/HCPCS: 82570; 84156